=== PATIENT | male | born 1980 | race Caucasian/White ===

== ENCOUNTER 2025-05-17 03:25 | Emergency (ER) | payer MEDICARE ==
[~2025-05-17] VITALS: Ht 170.2 cm; Wt 95.3 kg
[2025-05-17] MEDS ORDERED: HYDROCODONE/APAP 10-325 MG TABLET ONE (03:57)
[2025-05-17] MEDS: HYDROCODONE/APAP 10-325 MG TABLET PO ONE (03:59)
[2025-05-17 04:01] LABS: *BILIRUBIN,URIN NEGATIVE (NEGATIVE); *CLARITY,URINE CLEAR (CLEAR); *COLOR,URINE YELLOW (YELLOW); *KETONES,URINE NEGATIVE (NEGATIVE); *PROTEIN,URINE NEGATIVE (NEGATIVE); *UROBILINOGEN,URINE 0.2 E.U./dl (NORMAL); LEUKOCYTE ESTERASE ,URINE NEGATIVE (NEGATIVE); NITRITE, URINE NEGATIVE (NEGATIVE); UGLUCOSE NEGATIVE (NEGATIVE)
[2025-05-17] MEDS ORDERED: ONDANSETRON ODT 4 MG TAB.RAPDIS ONE (04:01)
[2025-05-17 04:03] LABS: *BLOOD, URINE TRACE LYSED (NEGATIVE)
[2025-05-17] MEDS: ONDANSETRON ODT 4 MG TAB.RAPDIS SL ONE (04:04)
[2025-05-17 04:24] LABS: SQUAMOUS EPITHELIAL CELL,UR FEW /HPF (NONE SEEN)
[2025-05-17] MEDS ORDERED: KETOROLAC TROMETHAMINE 30 MG INJ IVP ONE (04:45)
[2025-05-17 05:30] VITALS: BP 149/68
[2025-05-17] MEDS ORDERED: HYDR-3980 PO (06:16)
[2025-05-17] MEDS ORDERED: ONDA4TAB11 PO (06:16)
[2025-05-17 06:55] VITALS: BP 145/72; O2SAT 97
== END 2025-05-17 06:51 | disposition home or self-care (01) ==
LOC: ER 03:37
DX: R10.9 Unspecified abdominal pain (principal); Z87.442 Personal history of urinary calculi
CPT/HCPCS: A4606; A4663; Q0162